=== PATIENT | male | born 1975 | race African-American/Black ===

== ENCOUNTER 2017-05-07 18:42 | Emergency (ER) | payer SELFPAY ==
[~2017-05-07] VITALS: Ht 172.7 cm; Wt 63.5 kg
[2017-05-07] MEDS ORDERED: LIDOCAINE 1% Multi-Dose 20 ML VIAL. ID ONE (19:00)
[2017-05-07] MEDS ORDERED: DIPHTH,PERTUSS(ACELL),TET TOX 0.5 ML DISP.SYRIN. VAX IM ONE (19:00)
[2017-05-07] MEDS ORDERED: LIDOCAINE 1% / SOD BICARB 8.4% 20 ML VIAL. IJ ONE ×2 (19:29→20:00)
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
[2017-05-07] MEDS ORDERED: LIDOCAINE 1% PF 30 ML VIAL. INJ ONE (20:15)
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
[2017-05-07 21:00] VITALS: BP 110/71
== END 2017-05-07 21:23 | disposition home or self-care (01) ==
LOC: ER 18:42
DX: S01.01XA Laceration without foreign body of scalp, initial encounter (principal); S71.012A Laceration without foreign body, left hip, initial encounter; F12.10 Cannabis abuse, uncomplicated; F10.129 Alcohol abuse with intoxication, unspecified; W22.8XXA Striking against or struck by other objects, initial encounter; Y93.89 Activity, other specified; Y92.89 Other specified places as the place of occurrence of the external cause; Y99.8 Other external cause status; Y90.9 Presence of alcohol in blood, level not specified
CPT/HCPCS: 12002; 70450; 72125; 90471; 90715; 99284-25

== ENCOUNTER 2019-08-08 23:21 | Emergency (ER) | payer SELFPAY ==
[~2019-08-08] VITALS: Ht 175.3 cm; Wt 68.0 kg
[2019-08-08 23:27] VITALS: BP 114/78
--- NOTE | 2019-08-08 23:47 | PHYS DOC ---
Past Medical History Past Medical History: Asthma Past Surgical History: Other Additional Past Surgical Histo: LEFT KNEE SURGERY Alcohol Use: Heavy Drug Use: Marijuana Adult General Chief Complaint Chief Complaint: Congestion HPI HPI 44-year-old male smoker with a history of asthma presents with cough and con gestion over the last couple of days. He states tonight it's become more difficult to breathe. He states he's used an inhaler in the past. He does not have one currently. He denies any fever chills or sweats. He denies hemoptysis. He has continued to smoke. He states he does have some sharp pain in his chest with coughing.[] Review of Systems Review of Systems Constitutional: Denies fever or chills [] Eyes: Denies change in visual acuity, redness, or eye pain [] HENT: Reports nasal congestion[] Respiratory: Per history of present illness[] Cardiovascular: No additional information not addressed in HPI [] GI: Denies abdominal pain, nausea, vomiting, bloody stools or diarrhea [] : Denies dysuria or hematuria [] Musculoskeletal: Denies back pain or joint pain [] Integument: Denies rash or skin lesions [] Neurologic: Denies headache, focal weakness or sensory changes [] Endocrine: Denies polyuria or polydipsia [] All other systems were reviewed and found to be within normal limits, except as documented in this note. Current Medications Current Medications Current Medications Medications (Trade) Dose Ordered Sig/Keyon Start Time Stop Time Status Last Admin Dose Admin Albuterol/ Ipratropium (Duoneb) 3 ml 1X ONCE 08/09/19 00:00 08/09/19 00:01 DC 08/08/19 23:45 3 ML Prednisone (Prednisone) 60 mg 1X ONCE 08/09/19 00:00 08/09/19 00:01 DC 08/08/19 23:45 60 MG Allergies Allergies Allergies Coded Allergies Type Severity Reaction Last Updated Verified No Known Drug Allergies 05/07/17 No Physical Exam Physical Exam Constitutional: Well developed, well nourished, no acute distress, non-toxic appearance. [] HENT: Normocephalic, atraumatic, bilateral external ears normal, oropharynx moist, no oral exudates, nose normal. [] Eyes: PERRLA, EOMI, conjunctiva normal, no discharge. [] Neck: Normal range of motion, no tenderness, supple, no stridor. [] Cardiovascular:Heart rate regular rhythm, no murmur [] Lungs & Thorax: Scattered wheezes throughout both lungs[] Abdomen: Bowel sounds normal, soft, no tenderness, no masses, no pulsatile masses. [] Skin: Warm, dry, no erythema, no rash. [] Back: No tenderness, no CVA tenderness. [] Extremities: No tenderness, no cyanosis, no clubbing, ROM intact, no edema. [] Neurologic: Alert and oriented X 3, normal motor function, normal sensory function, no focal deficits noted. [] Psychologic: Anxious[] Current Patient Data Vital Signs Vital Signs Date Time Temp Pulse Resp B/P (MAP) Pulse Ox O2 Delivery O2 Flow Rate FiO2 08/08/19 23:45 98 Room Air 08/08/19 23:27 98.1 114 18 114/78 (90) 98.1 EKG EKG [] Radiology/Procedures Radiology/Procedures [] Course & Med Decision Making Course & Med Decision Making Pertinent Labs and Imaging studies reviewed. (See chart for details) [ED course: Evaluation reveals a 44-year-old male smoker with asthma who was wheezing. He had a DuoNeb and 60 of prednisone during stay in the department. His wheezing resolved after his breathing treatment and steroids. We'll go ahead and provide the patient with a albuterol inhaler and steroids to take at home.] Dragon Disclaimer Dragon Disclaimer This electronic medical record was generated, in whole or in part, using a voice recognition dictation system. Departure Departure Impression: Primary Impression: Asthma exacerbation Disposition: 01 HOME, SELF-CARE Condition: IMPROVED Referrals: NO PCP (PCP) Patient Instructions: Asthma Prevention-Brief, Asthma, Acute Bronchospasm, Asthma, Adult Additional Instructions: Return to the emergency department with any new or concerning symptoms Scripts Albuterol Sulfate (VENTOLIN HFA INHALER) 18 Gm Hfa.aer.ad 2 PUFF INH Q4HRS for FOR ASTHMA, #1 INHALER 2 Refills Prov: MICHAELLE ROSE DO 08/09/19 Prednisone (PREDNISONE) 20 Mg Tablet 1 TAB PO TID PRN for COUGH for 5 Days, #15 TAB Prov: MICHAELLE ROSE DO 08/09/19 Problem Qualifiers Primary Impression: Asthma exacerbation Asthma severity: moderate Asthma persistence: persistent Qualified Codes: J45.41 - Moderate persistent asthma with (acute) exacerbation MICHAELLE ROSE DO Aug 08, 2019 23:47
[2019-08-09] MEDS ORDERED: IPRATRPIUM/ALBUTEROL 0.5/2.5MG 3 ML NEBU. NEB ONE
[2019-08-09] MEDS ORDERED: predniSONE 20 MG TABLET PO ONE
[2019-08-09] MEDS ORDERED: VENTOLIN HFA18 GM INH (00:12)
[2019-08-09] MEDS ORDERED: PRED20TA PO (00:12)
== END 2019-08-09 01:04 | disposition home or self-care (01) ==
LOC: ER 23:21
DX: J45.41 Moderate persistent asthma with (acute) exacerbation (principal); F12.90 Cannabis use, unspecified, uncomplicated; F10.10 Alcohol abuse, uncomplicated; J45.909 Unspecified asthma, uncomplicated; Z98.890 Other specified postprocedural states
CPT/HCPCS: 94640; 99283; J7512; J7620